=== PATIENT | male | born 1965 | race Hispanic/Latino ===

== ENCOUNTER 2016-12-13 09:32 | Inpatient (IN) | payer OTHER ==
[~2016-12-13] VITALS: Ht 193 cm; Wt 162.8 kg
[~2016-12-13 09:32] MED LIST: AUGMENTIN 875-1 EACH PO; HYCET 7.5 MG-3473 ML PO; HYDROCHLOROTHIA25 M1 PO; LOVENOX40 MG/0.1 SC; METFORMIN HCL500 M3 PO; NAPROXEN500 M2 PO; PROTONIX40 M3 PO
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
[2016-12-13 10:19] LABS: ABSOLUTE BASOPHIL COUNT 0.1 /CUMM (0.0-0.2); ABSOLUTE EOSINOPHIL COUNT 0.2 /CUMM (0.0-0.7); ABSOLUTE GRANULOCYTE CT 4.6 /CUMM (1.4-6.5); ABSOLUTE LYMPH COUNT 6.3 /CUMM (1.2-3.4); ABSOLUTE MONOCYTE COUNT 1.3 /CUMM (0.10-0.60); BASOPHIL % 0.7 % (0.0-2.0); EOSINOPHIL % 1.5 % (0-5); HEMATOCRIT 47.2 % (42-52); MEAN CORPUSCULAR HGB 31.3 PG (27.0-31.0); MEAN CORPUSCULAR HGB CONC 34.7 G/DL (33.0-37.0); MEAN CORPUSCULAR VOLUME 90.1 FL (80.0-94.0); MEAN PLATELET VOLUME 8.6 FL (7.4-10.4); PLATELET COUNT 221 /CUMM (130-400); RBC DISTRIBUTION WIDTH 12.7 % (11.5-14.5); RED BLOOD CELL CT 5.24 /CUMM (4.70-6.10); WHITE BLOOD CELL COUNT 12.4 /CUMM (4.8-10.8)
[2016-12-13 10:20] LABS: GRANULOCYTE % 36.9 % (42.2-75.2)
--- NOTE | 2016-12-13 10:44 | RADIOLOGY REPORT ---
EXAMINATION: XR PORTABLE CHEST CLINICAL INFORMATION: Severe upper abdominal pain after vomiting. COMPARISON: Chest radiograph 02/24/2016. TECHNIQUE: Portable frontal view of the chest was obtained. FINDINGS: Lung volumes are low. The lung bases are suboptimally assessed on this examination due to underpenetration and lordotic technique. Possible bibasilar subsegmental atelectasis. No large pleural effusion. No pneumothorax. The cardiac silhouette and upper mediastinal contours are unremarkable. No acute osseous finding. IMPRESSION: Poor visualization of the lung bases due to underpenetration and lordotic technique. Possible bibasilar subsegmental atelectasis. No overt consolidative disease or large effusion.
--- NOTE | 2016-12-13 13:21 | CT SCAN REPORT ---
EXAMINATION: CT ABDOMEN AND PELVIS WITH CONTRAST CLINICAL INFORMATION: Severe upper abdominal pain after vomiting. COMPARISON: Abdominal ultrasound, limited 05/19/2014. TECHNIQUE: Multidetector volumetric imaging was performed of the abdomen and pelvis before and after the IV administration of 95 mL of Optiray 320 intravenous contrast. Sagittal and coronal reformatted images were obtained on the technologist's workstation. DLP: 1748.54 mGy-cm FINDINGS: LUNG BASES: Moderate dependent changes. LIVER, GALLBLADDER, AND BILIARY TREE: The liver is normal in size, shape, and attenuation. No focal hepatic lesion or biliary ductal dilatation is present. The gallbladder is unremarkable with no evidence of radiopaque gallstones, gallbladder wall thickening, or obvious pericholecystic inflammatory changes. PANCREAS: Unremarkable. SPLEEN: Unremarkable. ADRENAL GLANDS: Unremarkable. KIDNEYS AND URETERS: The kidneys are normal in size, shape, and attenuation. No hydronephrosis, hydroureter, or calculi seen. No perinephric stranding. BLADDER: Unremarkable. GASTROINTESTINAL TRACT: The patient is status post sleeve gastrectomy. No evidence of bowel obstruction. Small hiatal hernia. Appendix unremarkable. ABDOMINAL WALL: Ventral midline hernia repair is intact. Small fat-containing inguinal hernias bilaterally. LYMPH NODES: 1.2 cm short axis celiac lymph node. No bulky adenopathy within the abdomen or pelvis. VASCULAR: No abdominal aortic aneurysm. PELVIC VISCERA: Unremarkable. OSSEOUS STRUCTURES: No acute or suspicious osseous abnormality. IMPRESSION: 1. No evidence of acute abdominal or pelvic abnormality. 2. 1.2 cm enlarged celiac lymph node, nonspecific and of uncertain clinical significance. Clinical correlation requested. 3. Sleeve gastrectomy appears intact.
--- NOTE | 2016-12-13 17:21 | PN- Att Addend ---
Attending Addendum Attending Brief Note 51 y/o M with pmh sig for htn, PRESTON, Pre diabetes, s/p gastric sleeve last yr, p/ w abd pain in epigastrium x 2-3 days but worse today. + vomiting once daily, no sig diarrhea, no hemetamesis. No BRBPR, no melanotic stools. Patient claims that he ate beef burger yesterday at [employer]. He denies consuming large amounts of alcohol. He just had a beer a few days ago. In the emergency room his lipase was found to be high. CAT abd scan abd/pelvis did not show any significant finding. Patient was given antiemetics as well as pain medications and now his pain is slightly better. He denies any changes in his medications recently and in fact he says that he does not take any medications. Vital Signs Date Time Temp Pulse Resp B/P B/P Pulse O2 O2 Flow FiO2 Mean Ox Delivery Rate 12/13 1518 97.3 71 15 109/56 96 Room Air 12/13 1320 96.3 63 18 126/63 99 Nasal 1.0L Cannula 12/13 1129 70 20 117/73 96 Nasal 2.0L Cannula 12/13 0954 96 Room Air 12/13 0953 64 18 167/84 96 Room Air 12/13 0942 98.4 28 98 Room Air on exam; aox3, and. cv; s1,s2, rrr resp; clear abd; soft, nt, bs+ (patient has received pain meds) ext; no edema. Laboratory Tests 12/13 12/13 1250 1005 Chemistry Sodium (137 - 145 mmol/L) 144 Potassium (3.5 - 5.1 mmol/L) 3.7 Chloride (98 - 107 mmol/L) 108 H Carbon Dioxide (22 - 30 mmol/L) 23 Anion Gap (5 - 16) 14 BUN (9 - 20 mg/dL) 13 Creatinine (0.7 - 1.2 mg/dL) 0.8 Estimated GFR (>60 ml/min) > 60 BUN/Creatinine Ratio (7 - 25 %) 16.3 Glucose (65 - 99 mg/dL) 112 H Calcium (8.4 - 10.2 mg/dL) 9.8 Total Bilirubin (0.2 - 1.3 mg/dL) 1.3 AST (17 - 59 U/L) 42 ALT (21 - 72 U/L) 38 Alkaline Phosphatase (< 127 U/L) 105 Troponin I (<0.11 ng/ml) < 0.01 Total Protein (6.3 - 8.2 g/dL) 7.3 Albumin (3.5 - 5.0 g/dL) 4.2 Globulin (1.9 - 4.2 gm/dL) 3.1 Albumin/Globulin Ratio (1.1 - 2.2 %) 1.4 Lipase (23 - 300 U/L) 3036 H Hematology CBC w Diff MAN DIFF ORDERED WBC (4.8 - 10.8 /CUMM) 12.4 H RBC (4.70 - 6.10 /CUMM) 5.24 Hgb (14.0 - 18.0 G/DL) 16.4 Hct (42 - 52 %) 47.2 MCV (80.0 - 94.0 FL) 90.1 MCH (27.0 - 31.0 PG) 31.3 H RDW (11.5 - 14.5 %) 12.7 Plt Count (130 - 400 /CUMM) 221 MPV (7.4 - 10.4 FL) 8.6 Gran % (42.2 - 75.2 %) 36.9 L Lymphocytes % (20.5 - 51.1 %) 50.7 Monocytes % (1.7 - 9.3 %) 10.2 H Eosinophils % (0 - 5 %) 1.5 Basophils % (0.0 - 2.0 %) 0.7 Absolute Granulocytes (1.4 - 6.5 /CUMM) 4.6 Absolute Lymphocytes (1.2 - 3.4 /CUMM) 6.3 H Absolute Monocytes (0.10 - 0.60 /CUMM) 1.3 H Absolute Eosinophils (0.0 - 0.7 /CUMM) 0.2 Absolute Basophils (0.0 - 0.2 /CUMM) 0.1 Platelet Estimate (ADEQUATE) ADEQUATE Normocytic RBCs VERIFIED Normochromic RBCs VERIFIED PUBS MCHC (33.0 - 37.0 G/DL) 34.7 Urines Urine Color (YEL,AMB,STR) FREEMAN Urine Clarity (CLEAR) CLEAR Urine pH (5.0 - 8.0) 6.0 Ur Specific [place] (1.001 - 1.035) >= 1.030 Urine Protein (NEG,<30 MG/DL) TRACE H Urine Ketones (NEG) NEG Urine Nitrite (NEG) NEG Urine Bilirubin (NEG) NEG@ICTO Urine Urobilinogen (0.1 - 1.0 EU/dl) 1.0 Ur Leukocyte Esterase (NEG) NEG Ur Microscopic SEDIMENT EXAMINED Urine WBC (0 - 2 /HPF) 1-3 H Ur Epithelial Cells (NONE,FEW) FEW Urine Bacteria (NEG/NONE) FEW H Urine Mucus (FEW,NONE) FEW Urine Hemoglobin (NEG) NEG Urine Glucose (N MG/DL) NEG All imaging reviewed. EKG>> sinus. A/P; 51 y/o M with pmh sig for htn, PRESTON, Pre diabetes, s/p gastric sleeve last year is admitted with abdominal pain likely secondary to acute pancreatitis. BISAP score 0. Patient admitted to medicine floor. Keep nothing by mouth and aggressively hydrated with IV fluids Ringers lactate. Please do serial abdominal exams as well as frequent monitoring for respiratory and fluid status. check TG levels, US Abd to r/o Gall stones. Symptomatically treatment with the pain medications as well as antiemetics. If patient develops diarrhea then will need a stool study. Please notify Dr. Dodson who is a bariatric surgeon. Patient is a leukocytosis likely secondary to enteritis. No antibiotics are indicated. DVT px: Lovenox. Full code.
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
--- NOTE | 2016-12-13 19:06 | ULTRASOUND REPORT ---
EXAMINATION: US ABDOMEN LIMITED CLINICAL INFORMATION: Severe epigastric pain. COMPARISON: CT abdomen pelvis 12/13/2016 and limited abdominal ultrasound 05/19/2014. TECHNIQUE: Real-time imaging of the right upper quadrant abdominal viscera. Study limited due to body habitus and bowel gas. FINDINGS: PANCREAS: Largely obscured by bowel gas. The visualized head of the pancreas is unremarkable. LIVER: Normal size. The liver demonstrates abnormally increased echogenicity. No evidence of focal mass or dilated intrahepatic bile ducts. GALLBLADDER: Normal. The gallbladder is physiologically distended without evidence of stones, sludge, polyps, wall thickening or pericholecystic fluid. COMMON BILE DUCT: Normal in caliber measuring 0.4 cm in diameter. RIGHT KIDNEY: Normal. No hydronephrosis. No renal calculi or focal parenchymal lesions. The kidney measures 11.4 cm in maximum dimension. FREE FLUID: None. IMPRESSION: 1. Echogenic liver consistent with hepatic steatosis. No significant hepatomegaly. 2. No evidence of cholelithiasis or biliary dilatation.
[2016-12-13 21:21] VITALS: BP 130/80
[2016-12-14 06:51] VITALS: BP 142/76
--- NOTE | 2016-12-14 06:54 | PN- Housestaff ---
TISH FONTANEZ,[facility] 12/14/16 0654: Subjective Follow-up For: Pancreatitis Subjective: I have personally seen and examined the patient this morning. Patients states that he has improved alot since yesterday. Denies any fever, chills, nausea, vomiting or overnight events. Review of Systems Constitutional: Denies: no symptoms. EENTM: Denies: no symptoms. Cardiovascular: Denies: no symptoms. Respiratory: Denies: no symptoms. Gastrointestinal: Denies: no symptoms. Genitourinary: Denies: no symptoms. Musculoskeletal: Denies: no symptoms. Skin: Denies: no symptoms. Neurological/Psychological: Denies: no symptoms. Objective Last 24 Hrs of Vital Signs/I&O Vital Signs Date Time Temp Pulse Resp B/P B/P Pulse O2 O2 Flow FiO2 Mean Ox Delivery Rate 12/14 1419 98.8 73 20 145/90 93 12/14 0651 98.2 62 20 142/76 95 Room Air 12/13 2121 97.7 66 20 130/80 95 Room Air 12/13 1930 96.5 86 16 140/77 97 Room Air 12/13 1752 99.1 73 16 138/79 97 Room Air Intake & Output 12/14 1600 12/14 0800 12/14 0000 Intake Total 1680 1200 210 Output Total 400 Balance 1680 1200 -190 Intake, IV 1200 1200 150 Intake, Oral 480 0 60 Number 0 Bowel Movements Output, Urine 400 Patient 359 lb 360 lb Weight Physical Exam General Appearance: Alert, Oriented X3, Cooperative, No Acute Distress Other Physical Findings: Skin No Rashes, No Breakdown HEENT Atraumatic, PERRLA, EOMI, Mucous Membr. moist/pink Neck Supple, No JVD, No thryomegaly Cardiovascular Regular Rate, Normal S1, Normal S2, No Murmurs Lungs Clear to Auscultation, Normal Air Movement Abdomen Normal Bowel Sounds, Soft, No Tenderness, No Hepatospenomegaly Neurological Normal Gait, Normal Speech, Strength at 5/5 X4 Ext, Normal Tone, Sensation Intact Extremities No Clubbing, No Cyanosis, No Edema, Normal Pulses Vascular Normal Pulses Current Medications: Current Medications Sig/Min Start time Last Medication Dose Route Stop Time Status Admin Acetaminophen 650 MG Q6P PRN 12/13 1630 AC PO Enoxaparin Sodium 40 MG DAILY 12/14 1000 AC SC Hydromorphone HCl 0 .STK-MED ONE 12/13 1756 DC .ROUTE Hydromorphone HCl 0.5 MG Q6-PRN PRN 12/13 1630 AC IV Lactated Ringer's 1,000 ML Q6H 12/13 1815 AC 12/14 IV 1015 Ondansetron HCl 4 MG Q8P PRN 12/13 1815 AC PO Oxycodone HCl 5 MG Q6-PRN PRN 12/13 1630 AC PO Patient Medication 1 ED .STK-MED ONE 12/14 1432 ME Teaching ED 12/14 1433 Last 24 Hrs of Lab/Juan Jose Results Last 24 Hrs of Labs/Mics: Laboratory Tests 12/14/16 0736: Anion Gap 8, Estimated GFR > 60, BUN/Creatinine Ratio 15.7, Total Bilirubin 1.5 H, Direct Bilirubin 0.2, AST 43, ALT 59, Alkaline Phosphatase 90, Total Protein 6.1 L, Albumin 3.4 L, Triglycerides 79, Cholesterol 114, LDL Cholesterol, Calc 69, HDL Cholesterol 30 L, Cholesterol/HDL Ratio 4, CBC w Diff NO MAN DIFF REQ, RBC 4.74, MCV 90.5, MCH 30.8, RDW 13.1, MPV 8.8, Gran % 60.5, Lymphocytes % 27.8 , Monocytes % 8.8, Eosinophils % 2.4, Basophils % 0.5, Absolute Granulocytes 4.9 , Absolute Lymphocytes 2.2, Absolute Monocytes 0.7 H, Absolute Eosinophils 0.2, Absolute Basophils 0, PUBS MCHC 34.1 12/14/16 0728: Total Bilirubin Cancelled, Direct Bilirubin Cancelled, AST Cancelled, ALT Cancelled, Alkaline Phosphatase Cancelled, Total Protein Cancelled, Albumin Cancelled Assessment/Plan Assessment: Patient is a 51-year-old gentleman with a past medical history significant for morbid obesity status post Laparoscopic sleeve gastrectomy Feb 2016, history of hypertension habit of edema, obstructive sleep apnea, history of prediabetes presented to the ED for evaluation of severe abdominal pain and vomiting # Severe abdominal pain: Most likely acute pancreatitis as patient's lipase levels are elevated. * Will start the patient on clear liquid diet and advance the diet as tolerated. * Monitor vitals every 4 hours. * Stop IV fluids * Zofran as needed for nausea and vomiting * IV Dilaudid for moderate to severe pain. * Right upper quadrant ultrasound: No evidence of cholelithiasis or biliary dilatation. * Triglyceride levels are within normal range * If the patient continues to have diarrhea will check stool studies. #History of severe morbid obesity status post laparoscopic sleeve gastrectomy Feb 2016. #History of obstructive sleep apnea #History of prediabetes Problem List: 1. Pancreatitis 2. S/P laparoscopic sleeve gastrectomy Pain Ratin Pain Location: Abdomen Pain Goal: Remain pain free Pain Plan: PAin PAthway Tomorrow's Labs & Rationales: CBC(PAncreatitis) LOGAN FELICIANO MD 12/14/16 1429: Attending MD Review Statement Attending Statement Attending MD Statement: examined this patient, discuss w/resident/PA/DIRECTOR ELECTRONICS, agreed w/resident/PA/DIRECTOR ELECTRONICS, reviewed EMR data (avail) Attending Assessment/Plan: 51M PMH morbid obesity, sleeve gastrectomy February 2016 admitted with epigastric pain, nausea, and vomiting in the setting of acute pancreatitis. No alcohol comsumption, no new medications or supplements. Normal triglycerides, ultrasound shows no evidence of gallstones. Today feels much better. Pain is controlled. He feels hungry. Labs reviewed. Exam benign. 1. Acute idiopathic pancreatitis 2. History of sleeve gastrectomy Plan - Continue on general medicine - Continue pain control - Continue IV hydration - Advance diet as tolerated - DVT PPx - Anticipated discharge tomorrow if he can tolerate food without pain. No home medication changes. Please send [facility] for review.
[2016-12-14 08:33] LABS: ABSOLUTE BASOPHIL COUNT 0 /CUMM (0.0-0.2); ABSOLUTE EOSINOPHIL COUNT 0.2 /CUMM (0.0-0.7); ABSOLUTE GRANULOCYTE CT 4.9 /CUMM (1.4-6.5); ABSOLUTE LYMPH COUNT 2.2 /CUMM (1.2-3.4); ABSOLUTE MONOCYTE COUNT 0.7 /CUMM (0.10-0.60); BASOPHIL % 0.5 % (0.0-2.0); EOSINOPHIL % 2.4 % (0-5); HEMATOCRIT 42.9 % (42-52); MEAN CORPUSCULAR HGB 30.8 PG (27.0-31.0); MEAN CORPUSCULAR HGB CONC 34.1 G/DL (33.0-37.0); MEAN CORPUSCULAR VOLUME 90.5 FL (80.0-94.0); MEAN PLATELET VOLUME 8.8 FL (7.4-10.4); PLATELET COUNT 176 /CUMM (130-400); RBC DISTRIBUTION WIDTH 13.1 % (11.5-14.5); RED BLOOD CELL CT 4.74 /CUMM (4.70-6.10); WHITE BLOOD CELL COUNT 8.1 /CUMM (4.8-10.8)
[2016-12-14 08:57] LABS: GRANULOCYTE % 60.5 % (42.2-75.2)
[2016-12-14 14:19] VITALS: BP 145/90
--- NOTE | 2016-12-14 17:38 | Patient Discharge Instructions ---
Discharge Instructions General Discharge Information You were seen/treated for: Pancratitis Special Instructions: Musa follow up with your PCP within 1 week of discharge. Diet Continue normal diet: Yes (Low fat, avoid alcohol.) Activity Full Activity/No Limits: Yes (As tolerated) Acute Coronary Syndrome Inclusion Criteria At DC or during hospital stay patient has or had the following: ACS DIAGNOSIS No Discharge Core Measures Meds if any: Prescribed or Continued at Discharge Meds if any: NOT Prescribed or Continued at Discharge Congestive Heart Failure Inclusion Criteria At DC or during hospital stay patient has or had the following: CHF DIAGNOSIS No Discharge Core Measures Meds if any: Prescribed or Continued at Discharge Meds if any: NOT Prescribed or Continued at Discharge Cerebrovascular accident Inclusion Criteria At DC or during hospital stay patient has or had the following: CVA/TIA Diagnosis No Discharge Core Measures Meds if any: Prescribed or Continued at Discharge Meds if any: NOT Prescribed or Continued at Discharge Venous thromboembolism Inclusion Criteria VTE Diagnosis No VTE Type NONE VTE Confirmed by (Test) NONE Discharge Core Measures - Per Current guidelines, there needs to be overlap - treatment for the first 5 days of Warfarin therapy. - If discharged on Warfarin prior to 5 days of - overlap therapy, the patient will need to be - assessed for post discharge needs including - *Post discharge parental anticoagulation - *Warfarin and/or parental anticoagulation education - *Follow up date to check INR post discharge At least 5 days overlap therapy as Inpatient No Meds if any: Prescribed or Continued at Discharge Note: Overlap Therapy is Warfarin and Anticoagulant Meds if any: NOT Prescribed or Continued at Discharge
[2016-12-14 22:53] VITALS: BP 140/80
[2016-12-15 06:49] VITALS: BP 134/76
[2016-12-15 08:42] LABS: ABSOLUTE BASOPHIL COUNT 0 /CUMM (0.0-0.2); ABSOLUTE EOSINOPHIL COUNT 0.2 /CUMM (0.0-0.7); ABSOLUTE GRANULOCYTE CT 7.4 /CUMM (1.4-6.5); ABSOLUTE LYMPH COUNT 2.4 /CUMM (1.2-3.4); ABSOLUTE MONOCYTE COUNT 1.1 /CUMM (0.10-0.60); BASOPHIL % 0.4 % (0.0-2.0); EOSINOPHIL % 1.8 % (0-5); GRANULOCYTE % 66.3 % (42.2-75.2); MEAN CORPUSCULAR HGB 31.1 PG (27.0-31.0); MEAN CORPUSCULAR HGB CONC 34.5 G/DL (33.0-37.0); MEAN CORPUSCULAR VOLUME 90.2 FL (80.0-94.0); MEAN PLATELET VOLUME 9.2 FL (7.4-10.4); PLATELET COUNT 176 /CUMM (130-400); RBC DISTRIBUTION WIDTH 12.9 % (11.5-14.5); RED BLOOD CELL CT 4.65 /CUMM (4.70-6.10); WHITE BLOOD CELL COUNT 11.1 /CUMM (4.8-10.8)
--- NOTE | 2016-12-15 11:07 | PN- Housestaff ---
See Addendum Subjective Follow-up For: Pancreatitis Subjective: He is feeling much improved this morning. He had breakfast this morning that went down well including solids. He has not had a bowel movement since Saturday. He also has not been eating. Pain is 0/10. No chest pain or shortness of breath Review of Systems Constitutional: Reports: no symptoms. EENTM: Reports: no symptoms. Cardiovascular: Reports: no symptoms. Respiratory: Reports: no symptoms. Gastrointestinal: Reports: no symptoms. Genitourinary: Reports: no symptoms. Musculoskeletal: Reports: no symptoms. Skin: Reports: no symptoms. Neurological/Psychological: Reports: no symptoms. Hematologic/Endocrine: Reports: no symptoms. Immunologic/Allergic: Reports: no symptoms. Objective Last 24 Hrs of Vital Signs/I&O Vital Signs Date Time Temp Pulse Resp B/P B/P Pulse O2 O2 Flow FiO2 Mean Ox Delivery Rate 12/15 0649 98.3 68 18 134/76 93 Room Air 12/14 2253 98.0 71 20 140/80 94 Room Air 12/14 1419 98.8 73 20 145/90 93 Intake & Output 12/15 1600 12/15 0800 12/15 0000 Intake Total 1440 1680 Output Total Balance 1440 1680 Intake, IV 1200 1200 Intake, Oral 240 480 Physical Exam General Appearance: Alert, Oriented X3, Cooperative, No Acute Distress Cardiovascular: Regular Rate, Normal S1, Normal S2 Lungs: Clear to Auscultation Abdomen: Normal Bowel Sounds, Soft, No Tenderness Extremities: No Edema Current Medications: Current Medications Sig/Min Start time Last Medication Dose Route Stop Time Status Admin Acetaminophen 650 MG Q6P PRN 12/13 1630 AC PO Enoxaparin Sodium 40 MG DAILY 12/14 1000 AC SC Hydromorphone HCl 0.5 MG Q6-PRN PRN 12/13 1630 AC IV Lactated Ringer's 1,000 ML Q6H 12/13 1815 DC 12/15 IV 0549 Ondansetron HCl 4 MG Q8P PRN 12/13 1815 AC PO Oxycodone HCl 5 MG Q6-PRN PRN 12/13 1630 AC PO Patient Medication 1 ED .STK-MED ONE 12/14 1432 DC Teaching ED 12/14 1433 Simethicone 80 MG Q6P PRN 12/15 0845 AC PO Last 24 Hrs of Lab/Juan Jose Results Last 24 Hrs of Labs/Mics: Laboratory Tests 12/15/16 0610: CBC w Diff NO MAN DIFF REQ, RBC 4.65 L, MCV 90.2, MCH 31.1 H, RDW 12.9, MPV 9.2, Gran % 66.3, Lymphocytes % 21.3, Monocytes % 10.2 H, Eosinophils % 1.8, Basophils % 0.4, Absolute Granulocytes 7.4 H, Absolute Lymphocytes 2.4, Absolute Monocytes 1.1 H, Absolute Eosinophils 0.2, Absolute Basophils 0, PUBS MCHC 34.5 Assessment/Plan Assessment: Patient is a 51-year-old gentleman with a past medical history significant for morbid obesity status post Laparoscopic sleeve gastrectomy Feb 2016, history of hypertension habit of edema, obstructive sleep apnea, history of prediabetes presented to the ED for evaluation of severe abdominal pain and vomiting. # Severe abdominal pain: Most likely acute pancreatitis. This morning he is doing much better and tolerating diet well. We will see how he continues to tolerate diet and monitor his bowel movements. He may be able to go home later today. * Zofran as needed for nausea and vomiting * IV Dilaudid for moderate to severe pain. -Simethicone when necessary gas #History of severe morbid obesity status post laparoscopic sleeve gastrectomy Feb 2016. #History of obstructive sleep apnea #History of prediabetes Full code DVT prophylaxis with enoxaparin Problem List: 1. Pancreatitis Pain Ratin Pain Location: no pain Pain Goal: Remain pain free Pain Plan: see a/p Tomorrow's Labs & Rationales: none
--- NOTE | 2016-12-17 06:53 | Discharge Summary ---
Visit Information Visit Dates Admission Date: 12/13/16 Discharge Date: 12/15/16 Hospital Course Course Attending Physician: LOGAN FELICIANO MD Primary Care Physician: JED LEMARY [facility] Course: Patient is a 51-year-old gentleman with a past medical history significant for morbid obesity status post Laparoscopic sleeve gastrectomy Feb 2016, history of obstructive sleep apnea,prediabetes presented to the ED for evaluation of severe abdominal discomfort and vomiting . Patient mentioned that he has been having nonbilious nonbloody vomiting for the last 3 days, associated with loose watery stools for the last 2 days. Denies any fever or chills. Today this morning he started having severe epigastric discomfort, 10/10 in severity, constant, radiating to the back without any alleviating or aggravating factors. His symptoms are concerning that brought him to the ER for further assessment. Patient didn't have any such symptoms before. He is an occasional alcohol drinker last drink was on Saturday. Vitals on admission temperature :98.4, pulse 64, respiratory rate 28, blood pressure 167/84 more than 96% on room air. Pertinent labs on admission Leukocytosis 12.2 without any granulocytosis/bandemia and elevated lipase 3036, EKG normal sinus rhythm with a QTC of 479 CT abdomen and pelvis revealed no evidence of acute abdominal or pelvic abnormality. 1.2 cm enlarged celiac lymph node, nonspecific and of uncertain clinical significance. Clinical correlation requested. Sleeve gastrectomy appears intact. Patient was admitetd to the general medicine floor for following problems: #Severe abdominal pain: Most likely acute pancreatitis. * Patient was made NPO and started on IV Fluids. * Zofran as needed for nausea and vomiting * IV Dilaudid for moderate to severe pain. Abdominal pain was resolved and diet was advanced gradually, which the patient tolerated well. #History of severe morbid obesity status post laparoscopic sleeve gastrectomy Feb 2016. #History of obstructive sleep apnea #History of prediabetes Allergies: Coded Allergies: No Known Drug Allergies (Intermediate, NONE 12/13/16) shellfish derived (Intermediate, ANAPHYLAXIS 11/28/15) Disposition Summary Disposition Principal Diagnosis: Acute Pancreatitis Additional Diagnosis: S/P Gastrectomy sleeve PRESTON Prediabetes Discharge Disposition: home or self care Discharge Instructions General Discharge Information Code Status: Full Code Patient's Diet: Regular Diet(Low fat, Avoid Alcohol) Patient's Activity: As tolerated. Follow-Up Instructions/Appts: Please Follow up with your PCP within 1 week. Copies To: MARY ADKINS APRN Attending MD Review Statement Documenting Attending: CARYN LEE MD
== END 2016-12-15 13:03 | DRG 282 ==
LOC: ERH 09:32 → ERHI 14:48 → 2NA 14:48 → ENRESERV 18:11 → ENTRNSPT 20:03 → 2NA 20:32 → CMPTRNSPT 20:41 → 2NA 12-14 06:38 → ENPENDDIS 12-15 12:05 → 2NA 12-15 13:03
PROVIDERS: Emergency Medicine; Internal Medicine; Student in an Organized Health Care Education/Training Program; ADMIT Hospitalist
DX: K85.90 Acute pancreatitis without necrosis or infection, unspecified (principal); E66.01 Morbid (severe) obesity due to excess calories; Z68.42 Body mass index [BMI] 45.0-49.9, adult; G47.33 Obstructive sleep apnea (adult) (pediatric); R73.03 Prediabetes; I10 Essential (primary) hypertension; Z90.3 Acquired absence of stomach [part of]
CPT/HCPCS: 2NAP; 36415; 74177; 81001; 82436; 93005; 93010; 96361; 96374; 96375; 96376; J1650; J2405; J2550; J3101; J7120

== ENCOUNTER 2016-12-18 15:26 | Emergency (ER) | payer OTHER ==
[~2016-12-18] VITALS: Ht 193 cm; Wt 163.3 kg
[2016-12-18 16:19] LABS: ABSOLUTE BASOPHIL COUNT 0.1 /CUMM (0.0-0.2); ABSOLUTE EOSINOPHIL COUNT 0.3 /CUMM (0.0-0.7); ABSOLUTE GRANULOCYTE CT 3.5 /CUMM (1.4-6.5); ABSOLUTE LYMPH COUNT 4.7 /CUMM (1.2-3.4); ABSOLUTE MONOCYTE COUNT 1.1 /CUMM (0.10-0.60); BASOPHIL % 0.5 % (0.0-2.0); HEMATOCRIT 47.5 % (42-52); MEAN CORPUSCULAR HGB 31.2 PG (27.0-31.0); MEAN CORPUSCULAR HGB CONC 34.6 G/DL (33.0-37.0); MEAN CORPUSCULAR VOLUME 90.3 FL (80.0-94.0); MEAN PLATELET VOLUME 9.2 FL (7.4-10.4); PLATELET COUNT 239 /CUMM (130-400); RBC DISTRIBUTION WIDTH 12.8 % (11.5-14.5); RED BLOOD CELL CT 5.27 /CUMM (4.70-6.10); WHITE BLOOD CELL COUNT 9.6 /CUMM (4.8-10.8)
[2016-12-18 16:20] LABS: GRANULOCYTE % 36.1 % (42.2-75.2)
[2016-12-18] MEDS ORDERED: FLUTICASONE PRO16 GM NASB (16:24)
[2016-12-18] MEDS ORDERED: GAS RELIEF125 MG PO (16:26)
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
[2016-12-18] MEDS ORDERED: CITRATE OF MAG300 ML PO (17:32)
[2016-12-18] MEDS ORDERED: ZOFRAN4 M2 PO (17:33)
[2016-12-18 17:45] VITALS: BP 121/58
== END 2016-12-18 17:45 ==
LOC: ERH 15:26
PROVIDERS: Emergency Medicine
DX: K85.90 Acute pancreatitis without necrosis or infection, unspecified (principal); K59.00 Constipation, unspecified